=== PATIENT | male | born 1940 | race Caucasian/White ===

== ENCOUNTER 2017-02-24 13:32 | Inpatient (IN) ==
--- NOTE | 2017-02-23 22:25 | Discharge Summary ---
<Susan Ames Leigh Ann - Last Filed: 02/24/17 09:34> Date of Encounter: 02/24/17 - Discharge Diagnosis (1) Instability of prosthetic shoulder joint Priority: Primary Status: Acute Qualifiers: Encounter type: initial encounter Qualified Code(s): T84.028A - Dislocation of other internal joint prosthesis, initial encounter; Z96.619 - Presence of unspecified artificial shoulder joint (2) HLD (hyperlipidemia) Priority: Secondary Status: Chronic Qualifiers: Hyperlipidemia type: unspecified Qualified Code(s): E78.5 - Hyperlipidemia , unspecified (3) HTN (hypertension) Priority: Secondary Status: Chronic Qualifiers: Hypertension type: essential hypertension Qualified Code(s): I10 - Essential (primary) hypertension (4) Obesity (BMI 30.0-34.9) Priority: Secondary Status: Chronic - Discharge Medications Home Medications: Allopurinol [Zyloprim] 100 mg PO DAILY 07/29/16 [History] Atorvastatin Calcium [Lipitor] 20 mg PO DAILY 07/29/16 [History] Calcium Carbonate [Calcium] 600 mg PO BID 07/29/16 [History] Dutasteride [Avodart] 0.5 mg PO DAILY 07/29/16 [History] Lisinopril/Hydrochlorothiazide [Zestoretic 20-12.5 mg Tablet] 1 each PO BID [History] Magnesium 250 mg PO DAILY 07/29/16 [History] Multivitamin [One Daily Essential] 1 each PO DAILY 07/29/16 [History] [place]-3/Dha/Epa/Fish Oil [[place] 3 500 Softgel] 1 each PO DAILY 07/29/16 [History ] Omeprazole [PriLOSEC] 20 mg PO DAILY 07/29/16 [History] Potassium Gluconate 500 mg PO DAILY 07/29/16 [History] Aspirin [Lo-Dose Aspirin EC] 81 mg PO DAILY 02/24/17 [History] OxyCODONE Immed Rel [Roxicodone 5 MG] 5 - 10 mg PO Q6HR PRN #40 tablet 02/24/17 [Rx] Allergies/Adverse Reactions: Allergies No Known Allergies Allergy (Verified 02/24/17 15:10) Primary care physician: Laine Diane - Patient Status Disposition: Home, Self-Care Condition: Good - Discharge Instructions Follow Up With: Russel Sabillon DO [Primary Care Provider] - - Hospital Course Hospital course: Mr. Hassan is a 76 year old male - Time Spent with Patient Total time spent providing and/or coordinating discharge services: <Mani Deng - Last Filed: 02/25/17 06:25> Date of Encounter: 02/25/17 Time of Encounter: 06:24 - Discharge Diagnosis (1) Loosening of total shoulder replacement Priority: Primary Status: Acute Qualifiers: Encounter type: subsequent encounter Qualified Code(s): T84.038D - Mechanical loosening of other internal prosthetic joint, subsequent encounter; Z96.619 - Presence of unspecified artificial shoulder joint (2) HLD (hyperlipidemia) Priority: Secondary Status: Chronic Qualifiers: Hyperlipidemia type: unspecified Qualified Code(s): E78.5 - Hyperlipidemia , unspecified (3) HTN (hypertension) Priority: Secondary Status: Chronic Qualifiers: Hypertension type: essential hypertension Qualified Code(s): I10 - Essential (primary) hypertension (4) Obesity (BMI 30.0-34.9) Priority: Secondary Status: Chronic Primary care physician: Laine Diane - Patient Status Functional capacity at discharge: uses cane/walker Overall status at discharge: patient is progressing back to baseline - Hospital Course Hospital course: Mr. Hassan is a 76 year old male The patient had an uneventful postoperative course. They received antibiotics and physical therapy and were discharged in stable condition. There will follow -up in the office in 2 weeks. - Time Spent with Patient Total time spent providing and/or coordinating discharge services:
[2017-02-24] MEDS ORDERED: CeFAZolin Pre 2,000 MG/100 ML 2,000 MG/100 ML BAG IVPB ONE (14:22)
[2017-02-24] MEDS ORDERED: Lidocaine -MPF 1% 2 ML VIAL ID ONE (14:22)
[2017-02-24] MEDS: Ringers Solution, Lactated 1,000 ML IVC SCH ×3 (14:32→21:24)
--- NOTE | 2017-02-24 14:48 | Anesthesia Evaluation PreOp ---
Date of Encounter: 02/24/17 Time of Encounter: 14:47 - Past History Planned Operation: revision r tsr Cardiac History: HTN, Hyperlipidemia Pulmonary History: Former smoker (quit 34 years ago) ROW BOSS HOEING History: Other (spinal stenosis) Other Medical History: GERD Anesthesia History: No Prior Anesthetic Complications, Past Anesthesia (cschope , prostate, back x2, l tsr, bilat tka, r tsr) Alcohol Use: none Drug use: none Medications and Allergies Allopurinol [Zyloprim] 100 mg PO DAILY 07/29/16 [History] Atorvastatin Calcium [Lipitor] 20 mg PO DAILY 07/29/16 [History] Calcium Carbonate [Calcium] 600 mg PO BID 07/29/16 [History] Dutasteride [Avodart] 0.5 mg PO DAILY 07/29/16 [History] HYDROcodone/Acet 5/325 mg [[place] 5-325 mg] 1 tab PO Q6H PRN 07/29/16 [History] Lisinopril/Hydrochlorothiazide [Zestoretic 20-12.5 mg Tablet] 1 each PO BID [History] Magnesium 250 mg PO DAILY 07/29/16 [History] Multivitamin [One Daily Essential] 1 each PO DAILY 07/29/16 [History] [place]-3/Dha/Epa/Fish Oil [[place] 3 500 Softgel] 1 each PO DAILY 07/29/16 [History ] Omeprazole [PriLOSEC] 20 mg PO DAILY 07/29/16 [History] Potassium Gluconate 500 mg PO DAILY 07/29/16 [History] hydrOXYzine HCl [Hydroxyzine HCl] 50 mg PO HS 07/29/16 [History] OxyCODONE Immed Rel [Roxicodone 5 MG] 5 - 10 mg PO Q6HR PRN #40 tablet 02/24/17 [Rx] Allergies No Known Allergies Allergy (Verified 07/29/16 08:37) - Meds/Allergy Pre-op Review Medications Reviewed: Yes Allergies Reviewed: Yes Beta Blockers on Current Med List: No Anesthesia Results - Labs Laboratory Tests 02/14/17 02/14/17 02/14/17 12:56 12:56 12:56 Hgb 13.4 Hct 38.8 Plt Count 203 PT 10.8 INR 1.0 APTT 32.1 Sodium 135 L Potassium 4.3 Creatinine 1.03 - Imaging EKG: report reviewed (sr, lad, mod ivcd) Anesthesia Exam O2 Sat Height 1.78 m Weight 109.769 kg Height: 1.78 Weight: 109 NPO (# of Hours): >8 - HEENT Pupil (Motor): Pupils equal, EOMI Mallampati: II Teeth: Edentulous Oral Opening: Greater than 3 - ROW BOSS HOEING LOC: Oriented ROW BOSS HOEING Motor: Normal RUE, Normal LUE, Normal RLE, Normal LLE, Normal Face ROW BOSS HOEING Sensory: Normal: RUE, LUE, RLE, LLE, Face - Cardiac Rhythm: Regular Murmur: None - Pulmonary Breath Sounds: bilateral Clear Respiratory Effort: Symmetrical Anesthesia Assess/Plan ASA Score: 3 Modified [place] Scale for Level of Consciousness: Cooperative, oriented, and tranquil Anesthetic Plan: General, Regional Monitoring Plan: Standard Monitors Recovery Plan: PACU
[2017-02-24] MEDS ORDERED: CloNIDine Patch 0.1 MG PATCH (WEEKLY) TD SCH (15:00)
[2017-02-24] MEDS ORDERED: *HR* Propofol 200 MG/20 ML VIAL IVP ONE (16:38)
[2017-02-24] MEDS ORDERED: *HR* FentaNYL (PF) 100 MCG/2 ML VIAL ONE (16:38)
[2017-02-24] MEDS ORDERED: *HR* Midazolam HCl 2 MG/2 ML VIAL ONE (16:38)
[2017-02-24] MEDS ORDERED: Dexamethasone 4 MG/ML VIAL ONE (16:40)
[2017-02-24] MEDS ORDERED: Ondansetron 4 MG/2 ML VIAL ONE (16:40)
--- NOTE | 2017-02-24 17:04 | History & Physical Report ---
Date of Encounter: 02/24/17 Time of Encounter: 17:03 24 Hour HP Update - Instructions Instructions: If the History and Physical is less than 30 days old and was completed prior to A.M. admission and or procedure and has NOT been updated on calendar day of procedure please complete this update prior to performing procedure. - Update Patient reports changes in Medical Condition: No Changes in examination, assessment, or condition: No Changes in Medication: No Preop tests/diagnostics Reviewed: Yes Surgery Remains Indicated: Yes Consent for Planned Operative Procedure(s) Verified: Yes - Pre-Operative Checklist Preoperative Checklist Indicated: No Prophylactic Antibiotic Ordered: Yes Is VTE Prophylaxis Indicated?: Yes
[2017-02-24] MEDS ORDERED: ROPIVACAINE HCL/PF 0.5% 30 ML VIAL ONE (17:13)
[2017-02-24] MEDS ORDERED: Bupivacaine-MPF 0.25% 10 ML VIAL ONE (17:13)
--- NOTE | 2017-02-24 17:29 | Anesthesia Procedures ---
Date of Encounter: 02/24/17 Time of Encounter: 17: Procedures: Anesthesia - Nerve Block Procedure Date: 02/24/17 Time: 17:27 Allergies/Adv Reactions: nka Surgical Procedure: right TSA revision Checklist: Correct Patient Identifier, Correct procedure, History checked Correct side: Right Blood Thinner: No Monitor Applied: EKG, BP, Pulse Oximetry Supplemental Oxygen via Nasal Cannula (L/min): 2 Sedation: Versed (mg): 2 Sedation: Fentanyl (mcg): 100 Indication: Post Op Analgesia Pre-op Neuro Deficits: No Block Type: Interscalene, Other (CP) Catheter placed: No Sterile Technique: Yes Ultrasound used: Yes Anatomy identified: Yes Visual spread of Local: Yes Neuro Stimulation: No Blood on Needle Aspiration: No Smooth Injection of Local: Yes Pain with Injection of Local: No Prep: Chlorhexadine Needle: 22 x 50 mm Stimuplex Local: Ropivacaine (0.5%), Other (decadron 10mg IS, 0.25% bupivacaine 10ml CP) Volume (cc): 40 Number of Attempts: 1 Complications: None/effective block Vitals: BP 127/84, RR 16, Spo2 99%, HR 74
[2017-02-24] MEDS ORDERED: EPHEDrine 50 MG/ML VIAL ONE (17:49)
[2017-02-24] MEDS ORDERED: *HR* Enoxaparin 30 MG/0.3 ML SYRINGE SQ SCH (18:00)
[2017-02-24] MEDS ORDERED: *HR* HYDROmorphone (PF) 1 MG/ML SYRINGE IVP PRN ×2 (18:10→20:06)
[2017-02-24] MEDS ORDERED: Ondansetron 4 MG/2 ML VIAL IVP ONE (18:10)
--- NOTE | 2017-02-24 18:33 | Orthopedic Operative Note ---
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 Arthrex: Large glenoid baseplate , 42+4: glenosphere, 2, 4.5 screws, one, 6.5 screw, 42 central metaphyseal component, +9 metal spacer, 3 poly-spacer Procedural Notes: Gross loosening of glenoid component, retained fractured screw. Operative procedure: The patient was brought to the operating room and placed on the operating room table. The patient was placed in the modified beachchair position. All pressure points were padded appropriately. And the head was stabilized in the neutral position. The operative extremity was prepped and draped in the sterile surgical fashion. The patient received IV antibiotics prior to skin incision. A standard deltopectoral approach was made to the operative shoulder. Incision was made to the skin and subcutaneous tissue through the old incision, hemo stasis was obtained with Bovie cautery. Using careful blunt dissection the cephalic vein was identified and mobilized medially. The deltopectoral interval was developed and the clavipectoral fascia was incised. An extensive debridement was performed, and the shoulder was dislocated. The humeral poly- spacer, metal spacer and metaphyseal component were removed from the stem. The stem was well fixed. Attention was then turned towards the glenoid. Anterior and posterior Bankart retractors were used to expose the glenoid, the glenoid component was removed without incident. First the glenosphere was disengaged, and the screws removed from the baseplate, and finally the baseplate was removed without significant bone loss. The baseplate was grossly loose. The glenoid guide was seated the centering hole was made the glenoid was reamed with the appropriate large reamer. The large glenoid baseplate was seated and secured and locked in place with the 1, 6.5 screw central 2, 4.5 peripheral screws. The baseplate was irrigated and dried the 42+4 glenosphere was seated and secured. Attention was then turned to the humeral side. A new 42 central metaphysis was fixed I 135 degree angle to the well fixed humeral stem. A Trial reduction found the shoulder to be relocatable and stable with the appropriate implants 9 metal, 3 poly-. The trial implants were removed the real implants were seated and secured in the shoulder was reduced. The patient had excellent motion and excellent stability no shuck. The deep tissue was irrigated with pulse irrigation deltopectoral interval was closed with #2 PDS suture . Superficially the subcutaneous tissue was closed with 0 PDS suture, the skin was closed with Dermabond. The patient placed sterile dressing, postoperative brace extubated and transferred to the recovery room in stable condition. Anesthesia: GETA Surgeon: Mani Deng Disk Grinder: Susan Ames Condition: stable Disposition: PACU
--- NOTE | 2017-02-24 19:40 | Anesthesia Evaluation Post Op ---
Date of Encounter: 02/24/17 Time of Encounter: 19:15 - Vital Signs Vital Signs: Vital Signs/O2 Sat/Glucose, Most Current Temp Pulse Resp BP Pulse Ox 02/24/17 19:26 75 14 107/79 93 02/24/17 19:16 97.6 F 79 14 122/85 94 02/24/17 19:06 79 14 114/78 95 02/24/17 18:56 77 16 117/77 95 02/24/17 18:46 97.2 F L 77 16 115/71 97 - Lungs Lungs: Clear Ascult./Percussion - Airway Airway: Non-obstructed - Cardiovascular Regular Rate - Mental Status Mental Status: Alert & Oriented, Answers Appropriately - Pain Pain Scale: 1 Pain Scale used: Numeric (1 - 10), Cat-Orellana (Faces) - Nausea Vomiting Nausea Vomiting: Not Present - Hydration Hydration: Ice chips - Discharge PostOp Status: Transfer Patient to floor Anes Supervising Prov Stmt: Pt seen/evaluated, VSS And pt has met criteria for discharge to floor. - MD Lilia
[2017-02-24 19:54] LABS: Hematocrit 34.8 % (37.5-50.1); Hemoglobin 12.1 g/dL (12.9-16.9)
[2017-02-24] MEDS ORDERED: Sennosides 8.6 MG TABLET PO PRN (20:06)
[2017-02-24] MEDS ORDERED: *HR* OxyCODONE Immed Rel 5 MG TABLET PO PRN ×2 (20:06)
[2017-02-24] MEDS ORDERED: Ondansetron 4 MG/2 ML VIAL IVP PRN (20:06)
[2017-02-24] MEDS ORDERED: MOM Conc 10 ML UD.LIQ PO PRN (20:06)
[2017-02-24] MEDS ORDERED: Naloxone 0.4 MG/ML INJ IVP PRN (20:06)
[2017-02-24] MEDS ORDERED: Temazepam 15 MG CAPSULE PO PRN (20:06)
[2017-02-24] MEDS: Lisinopril-HCTZ 20-12.5mg TABLET PO SCH (21:22)
[2017-02-25] MEDS: ceFAZolin 2,000 MG in D5% in Water 100 ML IVPB SCH ×2 (00:46→07:39)
[2017-02-25 04:43] LABS: Hematocrit 36.6 % (37.5-50.1); Hemoglobin 12.9 g/dL (12.9-16.9)
[2017-02-25] MEDS ORDERED: *HR* Enoxaparin 30 MG/0.3 ML SYRINGE SQ SCH (06:00)
--- NOTE | 2017-02-25 06:26 | Orthopedics Progress Note ---
Date of Encounter: 02/25/17 Time of Encounter: 06:25 - Assessment and Plan (1) Loosening of total shoulder replacement Current Visit: Yes Status: Acute Qualifiers: Encounter type: subsequent encounter Qualified Code(s): T84.038D - Mechanical loosening of other internal prosthetic joint, subsequent encounter; Z96.619 - Presence of unspecified artificial shoulder joint (2) HLD (hyperlipidemia) Current Visit: No Status: Chronic Qualifiers: Hyperlipidemia type: unspecified Qualified Code(s): E78.5 - Hyperlipidemia , unspecified (3) HTN (hypertension) Current Visit: No Status: Chronic Qualifiers: Hypertension type: essential hypertension Qualified Code(s): I10 - Essential (primary) hypertension (4) Obesity (BMI 30.0-34.9) Current Visit: No Status: Chronic Subjective Interval history: Patient was seen this morning doing well without complaints. Afebrile vital signs stable. Operative extremity: Neurovascularly intact Dressing clean dry and intact Calves nontender Assessment and plan: Continue with postoperative care Hematocrit 36 discharged today Objective Vital signs: Vital Signs Temp Pulse Resp BP Pulse Ox 02/25/17 04:32 97.8 F 94 14 110/74 94 02/25/17 00:40 97.9 F 97 14 107/74 92 02/24/17 23:38 96 14 102/68 92 02/24/17 22:39 105 16 141/90 93 02/24/17 21:38 91 16 116/79 91 02/24/17 20:58 86 18 116/84 91 02/24/17 20:29 101 16 111/78 91 02/24/17 20:14 96 18 116/85 91 02/24/17 20:00 18 135/70 02/24/17 19:44 97.6 F 75 16 108/74 93 02/24/17 19:26 75 14 107/79 93 02/24/17 19:16 97.6 F 79 14 122/85 94 02/24/17 19:06 79 14 114/78 95 02/24/17 18:56 77 16 117/77 95 02/24/17 18:46 97.2 F L 77 16 115/71 97 02/24/17 14:48 97.6 F 73 18 118/80 95 Intake and Output 02/24/17 02/24/17 02/25/17 15:59 23:59 07:59 Intake Total 1100 / 1100 100 / 100 Output Total 650 / 650 350 / 350 Balance 450 / 450 -250 / -250 Intake: IV Fluids 1100 / 1100 100 / 100 Lactated Ringers 1,000 ML 1000 / 1000 @ 75 mls/hr IVC .[id number] [facility] Rx#:[id number] Ancef Premix 2,000 MG/100 100 / 100 ML 2,000 mg In 100 ml @ 200 mls/hr IVPB PREOP ONE Rx#:[id number] Ancef 2,000 MG In 100 / 100 Dextrose 5% 100 ML @ 200 mls/hr IVPB Q8HR [facility] Rx#: [id number] Output: Urine 550 / 550 350 / 350 Estimated Blood Loss 100 / 100 Other: Weight 109.769 kg 111 kg Patient Weight 02/25/17 23:59 Weight 111 kg - Labs CBC & BMP: 02/25/17 03:29 Labs: Abnormal lab results Hct 36.6 % (37.5-50.1) L 02/25/17 03:29 - VTE Documentation of Mechanical Device: Intermittent pneumatic compression device Consult Discharge Plan - Plan Referrals: Russel Sabillon DO [Primary Care Provider] -
[2017-02-25 06:52] VITALS: BP 99/67
[2017-02-25] MEDS: Ringers Solution, Lactated 1,000 ML IVC SCH (07:19)
[2017-02-25] MEDS: Lisinopril-HCTZ 20-12.5mg TABLET PO SCH (07:34)
[2017-02-25] MEDS ORDERED: MAGNESIUM 250 MG PO SCH (09:00)
[2017-02-25] MEDS ORDERED: POTASSIUM GLUCONATE 500 MG PO SCH (09:00)
[2017-02-25] MEDS ORDERED: Finasteride 5 MG TABLET PO SCH (09:00)
[2017-02-25] MEDS ORDERED: Multivit/Ca/Min/Fe/FA 1 TAB TABLET PO SCH (09:00)
[2017-02-25] MEDS ORDERED: Aspirin Enteric Coated 81 MG Tablet PO SCH (09:00)
== END 2017-02-25 11:30 | disposition home or self-care (01) | DRG 483 ==
LOC: SAMDAY 13:32 → 3NENU 13:33
PROVIDERS: ADMIT Orthopaedic Surgery; ATTEND Orthopaedic Surgery